=== PATIENT | female | born 1935 | race Caucasian/White ===

== ENCOUNTER 2017-01-20 16:03 | Inpatient (IN) | payer MEDICARE, BC ==
[~2017-01-20] VITALS: Ht 152.4 cm; Wt 81.5 kg
--- NOTE | ~2017-01-20 | HP ---
PATIENT'S NAME: DEJON WILLAMS [facility] AGE: 82 Y [address] ROOM: [place] [address] LOCATION: GPCU ADMIT DATE: 01/20/2017 History & Physical DISCHARGE DATE: FAMILY PHYSICIAN: STEVE SAUER MD ATTENDING PHYSICIAN: STEVE SAUER DATE OF SERVICE: CHIEF COMPLAINT: Fever. HISTORY OF PRESENT ILLNESS: The patient is an elderly 82-year-old female, who I saw in the office just prior to admission. She presented there and had a feeling of a sore throat, fever of 102 and 101.2 in my office, her respiratory rate of 20-30 without use of accessory muscles with a pulse rate of 119. She was medically stable, so I had her come over to the hospital. She was evaluated there by Dr. Olmstead, ER physician, and found to have a dense right upper lobe pneumonia. I discussed the case with Dr. Olmstead and the patient was admitted, placed on IV Zithromax and IV Rocephin. We will start breathing treatments, give O2 supplement as needed, and because of her heart history with AFib with chronic anticoagulation, we will obtain cardiac consultation while she is here. Because of the type of infiltrate and size of infiltrate, we will obtain Pulmonary consultation in the morning. We will continue with the IV antibiotics because of her chronic renal failure. Watch her renal function closely. I do note that her creatinine on admission was 1.9, her potassium is low at 3.3. We will replace that orally for now. Recheck a renal panel in the morning. Because of her diabetes mellitus type 2, treat her with oral agents and diet. We will do Accu-Cheks 4 times a day and a sliding scale with short-acting insulin as needed. PAST HISTORY MEDICATIONS: Medications: 1. Norvasc 10 mg a day. 2. Crestor 10 mg a day. 3. Lopressor 25 mg twice a day. 4. Vitamin D 5000 units a day. 5. Moexipril 15 mg 1 daily. 6. Chlorthalidone 25 mg a day. 7. Coumadin 5 mg a day. 8. Tradjenta 5 mg a day. 9. Synthroid 0.1 mg a day. ALLERGIES TO MEDICATIONS: See nurse's notes. PATIENT'S NAME: DEJON WILLAMS [facility] AGE: 82 Y [address] ROOM: [place] [address] LOCATION: GPCU ADMIT DATE: 01/20/2017 History & Physical DISCHARGE DATE: FAMILY PHYSICIAN: STEVE SAUER MD ATTENDING PHYSICIAN: STEVE SAUER PREVIOUS OPERATIONS: See old records. SOCIAL HISTORY: Does not smoke. FAMILY HISTORY: Noncontributory. IMMUNIZATIONS: Up-to-date for age. REVIEW OF SYSTEMS: Positive for hypertension, essential; hyperlipidemia; vitamin D deficiency, on replacement; chronic renal failure stage 3; chronic anticoagulation; atrial fibrillation, rate controlled; hypothyroid replacement; current pneumonia; respiratory failure secondary to pneumonia noted. PHYSICAL EXAMINATION: VITAL SIGNS: Noted. GENERAL: She is alert, pleasant, elderly female, who is ill, but nontoxic. HEENT: Shows O2 per nasal cannula. Pupils react to light. No sign of conjunctivitis. TMs are normal. Throat is slightly red. No exudate. Airway patent. NECK: Thyroid not enlarged. No adenopathy. LUNGS: Decreased breath sounds, right chest. HEART: Irregular rhythm. Rate controlled. No murmur. BREAST: Not done. ABDOMEN: Benign without tenderness. EXTREMITIES: Trace edema. Pulses felt throughout. PELVIC AND RECTAL: Not done. NEUROLOGIC: Cranial nerves intact. No lateralizing signs. LABORATORY DATA: Lab noted, chest x-ray reviewed. ASSESSMENT: 1. Community-acquired pneumonitis, manifesting as fever, sore throat, hypoxemia, and tachycardia. 2. Hypertension, essential. 3. Diabetes mellitus type 2, treated with oral agents. 4. Hypothyroid replacement. 5. Chronic anticoagulation. 6. Atrial fibrillation, rate control. PATIENT'S NAME: DEJON WILLAMS [facility] AGE: 82 Y [address] ROOM: [place] [id number] LOCATION: GPCU ADMIT DATE: 01/20/2017 History & Physical DISCHARGE DATE: FAMILY PHYSICIAN: STEVE SAUER MD ATTENDING PHYSICIAN: STEVE SAUER PLAN: As above. STEVE SAUER MD MARINE PIPEFITTER/modl /[id number] D: [id number] T: [id number] HISTORY & PHYSICAL
--- NOTE | ~2017-01-20 | CON ---
PATIENT'S NAME: LETY WILLAMS [facility] AGE: 82 Y [address] ROOM: [place] [address] LOCATION: GPCU ADMIT DATE: 01/21/2017 Consultation DISCHARGE DATE: FAMILY PHYSICIAN: STEVE ALCALA MD ATTENDING PHYSICIAN: STEVE ALCALA DATE OF CONSULTATION: 01/21/2017 REFERRING PHYSICIAN: Abbey Lincoln MD CARDIOLOGY CONSULTATION Patient of Dr. Alcala. Dear Dr. Alcala: Thank you for asking me to see Lety who is an 82-year-old female patient who was hospitalized yesterday with right upper lobe pneumonia. She has been ill for the past 7 days prior to which she was doing reasonably well. 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 She has not had any trouble with chest pain, but had fever and sore throat. She denies any significant shortness of breath. She does notice some trouble with breathing if she goes up a flight of stairs, making her functional class 3. There is no paroxysmal nocturnal dyspnea or orthopnea. She denies lightheadedness, dizziness, syncope, presyncope, palpitations, or ankle swelling. She has history of chronic atrial fibrillation on anticoagulation with Coumadin. She has had three cardioversions, but eventually went into chronic atrial fibrillation for which she is on current rate control strategy. The patient has history of hypertension, type 2 diabetes, and elevated cholesterol. She quit smoking 48 years ago. There is no family history of premature coronary artery disease. There is no prior history of [place] or angina or nitroglycerin use. There is no history of rheumatic fever. She does have a heart murmur. She denies congestive heart failure. She has chronic atrial fibrillation. MEDICATIONS: 1. Amlodipine 10 mg a day. 2. Rosuvastatin 10 mg a day. 3. Metoprolol 25 mg b.i.d. 4. Vitamin D3, 5000 units a day. 5. Moexipril 15 mg a day. 6. Chlorthalidone 25 mg a day. PATIENT'S NAME: LETY WILLAMS [facility] AGE: 82 Y [address] ROOM: [place] [address] LOCATION: GPCU ADMIT DATE: 01/21/2017 Consultation DISCHARGE DATE: FAMILY PHYSICIAN: STEVE ALCALA MD ATTENDING PHYSICIAN: STEVE ALCALA 7. Warfarin. 8. Tradjenta 5 mg daily. 9. Hydrochlorothiazide 25 mg a day. 10. Levothyroxine 100 mcg once a day. ALLERGIES: NO KNOWN DRUG ALLERGIES. PAST MEDICAL HISTORY: 1. Bilateral cataract surgery. 2. Tonsillectomy and adenoidectomy. 3. Hypothyroidism. SOCIAL HISTORY: The patient denies abusing alcohol. Her appetite and weight are stable. Sleep is fair. FAMILY HISTORY: No premature coronary artery disease. REVIEW OF SYSTEMS: A 12-point review of systems revealed no new additional information. PHYSICAL EXAMINATION: VITAL SIGNS: Her blood pressure is 130/55, heart rate is 104, respirations 20, and afebrile. HEENT: Normal. NECK: Supple. No JVD, thyromegaly, lymphadenopathy, or carotid bruit. HEART: PMI is not well located. First and second heart sounds are irregular. There are no added sounds. She does have a grade 2/6 to 3/6 systolic murmur best heard at the left sternal edge. Her heart rate is irregularly irregular. ABDOMEN: Soft. EXTREMITIES: Reveal no edema. CENTRAL NERVOUS SYSTEM: Overall appears to be intact. IMAGING STUDIES: Her EKG is unremarkable. One troponin is negative. Her proBNP is significantly elevated at 5000 units. A D-dimer is also elevated. Her prothrombin time is 1.99 making it almost therapeutic. ASSESSMENT: 1. Chronic atrial fibrillation on rate control strategy on oral anticoagulation with warfarin for CHADS2-VASc score of 4. 2. Possible underlying diastolic congestive heart failure. PATIENT'S NAME: LETY WILLAMS [facility] AGE: 82 Y [address] ROOM: [address] [address] LOCATION: GPCU ADMIT DATE: 01/21/2017 Consultation DISCHARGE DATE: FAMILY PHYSICIAN: STEVE ALCALA MD ATTENDING PHYSICIAN: STEVE ALCALA RECOMMENDATIONS: 1. We will get hold of her old cardiac catheterization and echocardiogram report. 2. We will obtain repeat CT chest PE protocol because of the underlying creatinine of 1.4. We will be very cautious about hydrating her and putting her on . 3. We will get few more laboratory tests done with troponins and EKG. If she has not had a recent echocardiogram, we will repeat that as well. Again, I appreciate this opportunity to participate in the care of Ms. Willams. MD SHAUNA COTTON/shannon /[id number] d: 01/21/17 2255 t: 01/27/17 1349, CONSULTATION REPORT
--- NOTE | ~2017-01-20 | ER ---
PATIENT'S NAME: DEJON WILLAMS [facility] AGE: 82 Y [address] ROOM: [place] [address] LOCATION: GPCU ADMIT DATE: 01/20/2017 ER/Outpatient Report DISCHARGE DATE: FAMILY PHYSICIAN: STEVE ALCALA MD ATTENDING PHYSICIAN: STEVE ALCALA TIME OF ARRIVAL: 16:02. TIME OF EVALUATION: 16:04. CHIEF COMPLAINT: Not feeling well. HISTORY OF PRESENT ILLNESS: The patient is an 82-year-old female, who presented to the Emergency Department today with a chief complaint of not feeling well. The patient reports that she initially went to Dr. Collado's office for evaluation of her kidneys, was unable to be seen there, and was sent to Dr. Alcala' office, who reported that she needed to come in to the Emergency Department for further evaluation. The patient has had subjective fevers at home as well as chills. No troubles urinating. She has also had a dry cough. She reports diarrhea x6 as well as fatigue. She reports symptoms started about 4 to 5 days, and has continued. She has also had nasal congestion and nasal drainage. She reports no pain, 0/10 in severity. PAST MEDICAL HISTORY: 1. Chronic kidney disease, stage 3. 2. Hypoxemia at night. 3. Nra-yzedxzx-xstnmktbe diabetes mellitus. 4. Hypothyroid. 5. Hypertension. 6. Atrial fibrillation. 7. Dyslipidemia. PAST SURGICAL HISTORY: ORIF of the wrist and ankle. SOCIAL HISTORY: The patient smoked less than a pack per day for five years and quit in 1968. She drinks alcohol occasionally. She denies any illicit drug use. ALLERGIES: NO KNOWN DRUG ALLERGIES. PATIENT'S NAME: DEJON WILLAMS [facility] AGE: 82 Y [address] ROOM: [place] [address] LOCATION: GPCU ADMIT DATE: 01/20/2017 ER/Outpatient Report DISCHARGE DATE: FAMILY PHYSICIAN: STEVE ALCALA MD ATTENDING PHYSICIAN: STEVE ALCALA MEDICATIONS: Please see list. REVIEW OF SYSTEMS: All systems are reviewed by myself, and are negative with the exception of those discussed in HPI and past medical history. PHYSICAL EXAMINATION: VITAL SIGNS: Weight is 82.9 kg. Blood pressure was 171/76, pulse was 102, respiratory rate was 18, temperature was 102.0, and oxygen saturation was 98% on room air. GENERAL: The patient is an 82-year-old female, who appears younger than stated age, in mild acute distress. Well developed. HEENT: Normocephalic and atraumatic. Pupils are equal, round, and reactive to light. Nares with clear discharge bilaterally. TMs are clear. Oropharynx is clear. NECK: Supple. There is no nuchal rigidity. CARDIOVASCULAR: Tachycardic. No murmurs, rubs, or gallops. LUNGS: Diminished diffusely with some crackles at the bases. ABDOMEN: Soft, nontender, and nondistended. No rebound, rigidity, or guarding. MUSCULOSKELETAL: The patient moves all 4 extremities. SKIN: Warm and dry. No rashes or lesions are noted. LABORATORY DATA AND DIAGNOSTIC IMAGING: Labs and x-rays are obtained. CBC: White blood cell count was 13.1 and ANC was 10.6, otherwise unremarkable. Lactate is normal. Influenza is negative. One-view chest x-ray does show a wedge-shaped opacification in the right lung. PTT is 31, PT is 18.5, and INR is 1.75. D-dimer is 2.12. ProBNP is 5095. CMP is unremarkable except for potassium of 3.3, BUN of 45, creatinine of 1.9, AST of 138, and ALT of 109. CK is normal. CK-MB is normal. Troponin is normal. Urinalysis shows 25 leukocyte esterase, 30 protein, and procalcitonin of 0.83 with moderate bacteria in the urine. IMPRESSION: 1. Community-acquired pneumonia. 2. Sepsis due to community-acquired pneumonia. 3. Acute respiratory failure, room air hypoxia. 4. Subtherapeutic INR. 5. Elevated D-dimer. 6. Elevated BNP. 7. Elevated liver enzymes. 8. Chronic kidney disease. 9. Critical care time of 31 minutes. PATIENT'S NAME: DEJON WILLAMS [facility] AGE: 82 Y [address] ROOM: [address] [place] [address] LOCATION: GPCU ADMIT DATE: 01/20/2017 ER/Outpatient Report DISCHARGE DATE: FAMILY PHYSICIAN: STEVE ALCALA MD ATTENDING PHYSICIAN: STEVE ALCALA 10. Initial visit. EMERGENCY DEPARTMENT COURSE: The patient was brought back to the Examination Room. She was seen and evaluated by myself. IV is established. Laboratory analysis and imaging are obtained as described above. The patient was given 1 g of Tylenol. She was started on a liter of normal saline. The results of the testing are obtained. The patient does have evidence of a wedge-shaped opacity noted on her chest x- ray. I have discussed this with the radiologist. He does report that findings are most compatible with a right upper lobe consolidating pneumonia with some cardiomegaly, without evidence of CHF noted. It is low likelihood in that location for it to be a pulmonary embolism. The patient's kidney function is elevated. A PE study is not ordered due to this as the patient is already on anticoagulation for atrial fibrillation. However, she is subtherapeutic at this time. Thus, we will initiate a heparin drip. The patient is also febrile, likely is pneumonia over pulmonary embolism. I have discussed the results with the patient. She is initiated on Rocephin 2 g IV as well as azithromycin 500 mg IV. The patient's questions are answered. I have contacted Dr. Alcala with the patient's primary care doctor. He does agree to accept the patient for further evaluation, treatment, and management. Please see his dictation. The patient did require cumulative critical care time of 31 minutes. This did include talking with the patient, talking with consultants, ordering tests, reviewing tests, reviewing old records, as well as close monitoring the patient with pneumonia, low oxygen saturations, and sepsis. DISPOSITION: The patient was admitted under the care of Dr. Alcala in stable condition. DO DONALDO ALONZO/modl /[id number] d: 01/21/17 0720 t: 01/23/17 1801, OUTPATIENT REPORT
--- NOTE | ~2017-01-20 | CON ---
PATIENT'S NAME: DEJON WILLAMS [facility] AGE: 82 Y [address] ROOM: [place] [id number] LOCATION: GPCU ADMIT DATE: 01/21/2017 Consultation DISCHARGE DATE: 01/26/2017 FAMILY PHYSICIAN: Kin Alcala MD ATTENDING PHYSICIAN: Kin Alcala DATE OF CONSULTATION: 01/20/2017 REFERRING PHYSICIAN: Abbey Lincoln MD HISTORY OF PRESENTING ILLNESS: This is an 82-year-old female who was admitted from Dr. Alcala' office to the Progressive Care Unit. The patient apparently presented to the office with sore throat, temperature 101-102, subsequently, the patient was admitted this time to the emergency department and was admitted to the hospital. The patient had persistent infiltrate on chest x-ray and Pulmonary consult was obtained. The patient currently is short of breath. She is on 3-4 L of oxygen and she is not on home oxygen. She denies any chest pain, pleurisy, hemoptysis, nausea, vomiting, abdominal pain, she did complain of cough with expectoration. Currently the patient feels a little bit better, but she continues to complain of shortness of breath at rest and with exertion. She denied any recent sick contact, she denied any immunocompromising medications, she denied any recent trauma to her chest. PAST MEDICAL HISTORY: 1. Chronic kidney disease, stage 3. 2. Nocturnal hypoxemia. 3. Ztc-oinvwdt-tyqjkwxni diabetes mellitus. 4. Hypothyroidism. 5. Atrial fibrillation. 6. Dyslipidemia. PAST SURGICAL HISTORY: ORIF of the wrist and ankle. SOCIAL HISTORY: The patient smoked less than a pack per day for 5 years, quit in 1968. She drinks alcohol occasionally. She denies any illicit drug use. ALLERGIES: NO KNOWN DRUG ALLERGIES. MEDICATIONS: Please refer to the MAR. PATIENT'S NAME: DEJON WILLAMS [facility] AGE: 82 Y [address] ROOM: [address] [address] LOCATION: GPCU ADMIT DATE: 01/21/2017 Consultation DISCHARGE DATE: 01/26/2017 FAMILY PHYSICIAN: Kin Alcala MD ATTENDING PHYSICIAN: Kin Alcala REVIEW OF SYSTEMS: A 10-point review of systems was done and otherwise negative other than mentioned in the history of presenting illness. PHYSICAL EXAMINATION: GENERAL: The patient is sitting in bed and does not appear in acute respiratory distress. VITAL SIGNS: Her weight is 82.9, blood pressure is 171/76, pulse is 102, respiratory rate was 20, temperature was 99, and oxygen saturation was 96% on 6 L. HEENT: Eyes are nonicteric. Pupils are equal, reactive to light, and accommodation. Normocephalic, atraumatic. Wet mucous membranes. Mallampati score is 2. NECK: Supple. No lymphadenopathy. No jugular venous distention. LUNGS: Decreased air entry on the right, there are crackles on the right, the left appears to be normal. HEART: S1, S2. No murmurs, rubs, or gallops. ABDOMEN: Soft, nontender, no palpable organs. LOWER EXTREMITIES: No edema, clubbing, or cyanosis. LABORATORY DATA: Laboratory data at the time of evaluation includes white cell count of 13.1, hemoglobin 12.2, hematocrit 36.2, and platelets 325. Her glucose was within normal limits. Her sodium was 136, potassium was 3.3, chloride was 99, CO2 was 25, anion gap was 15.3, BUN was 45, creatinine was 1.9, total protein was 7.1, albumin was 2.8, AST was 138, and ALT was 109. Blood cultures are pending. Chest x-ray reveals right-sided infiltrate, which looks like a wedge-shape. IMPRESSION: 1. Community-acquired pneumonia. 2. Hypoxic respiratory failure secondary to community-acquired pneumonia. PLAN: 1. At the current point, I agree with the current antibiotic choice of Zithromax and ceftriaxone as appropriate for this patient. 2. Aggressive pulmonary toilet is recommended. 3. I would recommend to obtain urine antigens for streptococcus and legionella. 4. Mycoplasma IgM. 5. I would also obtain sputum and blood cultures. 6. Early ambulation. 7. Wean off FiO2. PATIENT'S NAME: DEJON WILLAMS [facility] AGE: 82 Y [address] ROOM: [id number] [place], [place] [address] LOCATION: GPCU ADMIT DATE: 01/21/2017 Consultation DISCHARGE DATE: 01/26/2017 FAMILY PHYSICIAN: Kin Alcala MD ATTENDING PHYSICIAN: Alcala,Kin D 8. The patient will take time to recover. If she has persistent infiltrate in 3-4 weeks, further evaluation will be done. Thank you for allowing me to participate in the care of this patient. MD SHERLEY HINTON/shannon /[id number] d: 02/06/17 2359 t: 02/25/17 1007, CONSULTATION REPORT
--- NOTE | ~2017-01-20 | HP ---
PATIENT'S NAME: DEJON WILLAMS [facility] AGE: 82 Y [address] ROOM: [place] [address] LOCATION: GPCU ADMIT DATE: 01/20/2017 History & Physical DISCHARGE DATE: FAMILY PHYSICIAN: STEVE SAUER MD ATTENDING PHYSICIAN: STEVE SAUER DATE OF SERVICE: CHIEF COMPLAINT: Fever. HISTORY OF PRESENT ILLNESS: The patient is an elderly 82-year-old female, who I saw in the office just prior to admission. She presented there and had a feeling of a sore throat, fever of 102 and 101.2 in my office, her respiratory rate of 20-30 without use of accessory muscles with a pulse rate of 119. She was medically stable, so I had her come over to the hospital. She was evaluated there by Dr. Olmstead, ER physician, and found to have a dense right upper lobe pneumonia. I discussed the case with Dr. Olmstead and the patient was admitted, placed on IV Zithromax and IV Rocephin. We will start breathing treatments, give O2 supplement as needed, and because of her heart history with AFib with chronic anticoagulation, we will obtain cardiac consultation while she is here. Because of the type of infiltrate and size of infiltrate, we will obtain Pulmonary consultation in the morning. We will continue with the IV antibiotics because of her chronic renal failure. Watch her renal function closely. I do note that her creatinine on admission was 1.9, her potassium is low at 3.3. We will replace that orally for now. Recheck a renal panel in the morning. Because of her diabetes mellitus type 2, treat her with oral agents and diet. We will do Accu-Cheks 4 times a day and a sliding scale with short-acting insulin as needed. PAST HISTORY MEDICATIONS: Medications: 1. Norvasc 10 mg a day. 2. Crestor 10 mg a day. 3. Lopressor 25 mg twice a day. 4. Vitamin D 5000 units a day. 5. Moexipril 15 mg 1 daily. 6. Chlorthalidone 25 mg a day. 7. Coumadin 5 mg a day. 8. Tradjenta 5 mg a day. 9. Synthroid 0.1 mg a day. ALLERGIES TO MEDICATIONS: See nurse's notes. PATIENT'S NAME: DEJON WILLAMS [facility] AGE: 82 Y [address] ROOM: [place] [address] LOCATION: GPCU ADMIT DATE: 01/20/2017 History & Physical DISCHARGE DATE: FAMILY PHYSICIAN: STEVE SAUER MD ATTENDING PHYSICIAN: STEVE SAUER PREVIOUS OPERATIONS: See old records. SOCIAL HISTORY: Does not smoke. FAMILY HISTORY: Noncontributory. IMMUNIZATIONS: Up-to-date for age. REVIEW OF SYSTEMS: Positive for hypertension, essential; hyperlipidemia; vitamin D deficiency, on replacement; chronic renal failure stage 3; chronic anticoagulation; atrial fibrillation, rate controlled; hypothyroid replacement; current pneumonia; respiratory failure secondary to pneumonia noted. PHYSICAL EXAMINATION: VITAL SIGNS: Noted. GENERAL: She is alert, pleasant, elderly female, who is ill, but nontoxic. HEENT: Shows O2 per nasal cannula. Pupils react to light. No sign of conjunctivitis. TMs are normal. Throat is slightly red. No exudate. Airway patent. NECK: Thyroid not enlarged. No adenopathy. LUNGS: Decreased breath sounds, right chest. HEART: Irregular rhythm. Rate controlled. No murmur. BREAST: Not done. ABDOMEN: Benign without tenderness. EXTREMITIES: Trace edema. Pulses felt throughout. PELVIC AND RECTAL: Not done. NEUROLOGIC: Cranial nerves intact. No lateralizing signs. LABORATORY DATA: Lab noted, chest x-ray reviewed. ASSESSMENT: 1. Community-acquired pneumonitis, manifesting as fever, sore throat, hypoxemia, and tachycardia. 2. Hypertension, essential. 3. Diabetes mellitus type 2, treated with oral agents. 4. Hypothyroid replacement. 5. Chronic anticoagulation. 6. Atrial fibrillation, rate control. PATIENT'S NAME: DEJON WILLAMS [facility] AGE: 82 Y [address] ROOM: [place] [id number] LOCATION: GPCU ADMIT DATE: 01/20/2017 History & Physical DISCHARGE DATE: FAMILY PHYSICIAN: STEVE SAUER MD ATTENDING PHYSICIAN: STEVE SAUER PLAN: As above. STEVE SAUER MD SALES COORDINATOR/modl /[id number] D: T: [id number] HISTORY & PHYSICAL
--- NOTE | ~2017-01-20 | HP ---
PATIENT'S NAME: DEJON WILLAMS [facility] AGE: 82 Y [address] ROOM: [place] [address] LOCATION: GPCU ADMIT DATE: 01/21/2017 History & Physical DISCHARGE DATE: FAMILY PHYSICIAN: STEVE SAUER MD ATTENDING PHYSICIAN: STEVE SAUER DATE OF SERVICE: SUBJECTIVE: The patient says she is feeling better. The patient is seen with her daughter today. OBJECTIVE: The patient's pulse rate still is at 113/atrial fibrillation. Temperature is now normal for about 18 hours on IV antibiotics of Rocephin and Zithromax. See consultative notes from Cardiology and Pulmonology. MEDICATIONS: Reviewed. ALLERGIES: NOTED. REVIEW OF SYSTEMS: Positive for diabetes mellitus, type 2; chronic renal failure; current community-acquired pneumonitis, right lung; atrial fibrillation with rapid ventricular response; known carotid disease; and acute kidney injury on chronic kidney disease. PHYSICAL EXAMINATION: VITAL SIGNS: Pulse is mentioned. Respirations 18, O2 saturation with O2 normal. Temperature is 98.0. HEENT: Nose is clear. TMs not visualized. Posterior pharynx is clear. NECK: Unremarkable. LUNGS: Decreased breath sounds, right chest. HEART: No murmur. Irregular rhythm. ABDOMEN: Benign. EXTREMITIES: Trace edema. ASSESSMENT: 1. Community-acquired pneumonitis, right lung. 2. Atrial fibrillation with rapid ventricular response. 3. Hypertension, essential. 4. Diabetes mellitus, type 2. 5. Chronic renal failure, stage 3. PATIENT'S NAME: DEJON WILLAMS [facility] AGE: 82 Y [address] ROOM: [place] [address] LOCATION: GPCU ADMIT DATE: 01/21/2017 History & Physical DISCHARGE DATE: FAMILY PHYSICIAN: STEVE SAUER MD ATTENDING PHYSICIAN: STEVE SAUER PLAN: Long discussion with the patient and her daughter today. The patient wants to go home but I really think she needs another 24 hours of IV antibiotics to make sure her temperature stays down, her pulse rate is too fast to go home, and I discussed with the patient and her daughter that until these two areas defervesce and better, I would first hold off and switch her to oral antibiotics tomorrow and let the tuber machine operator helper adjust her medicine control her rapid ventricular response, atrial fibrillation then talk about going home in the next 24 to 48 hours. MD WALTER GAMA/shannon /[id number] D: [id number] T: [id number] HISTORY & PHYSICAL
--- NOTE | ~2017-01-20 | DS ---
PATIENT'S NAME: DEJON WILLAMS [facility] AGE: 82 Y [address] ROOM: [address] [place] [address] LOCATION: GPCU ADMIT DATE: 01/21/2017 Discharge Summary DISCHARGE DATE: 01/26/2017 FAMILY PHYSICIAN: Kin Alcala MD ATTENDING PHYSICIAN: Kin Alcala HOSPITAL COURSE: This elderly white female, 82-year-old, was admitted to the hospital with hypoxemia, respiratory failure, and was found to have in the emergency room a right lung pneumonia. Please see chest x-rays showing a right upper lobe infiltrate. Because of her rapid ventricular response and atrial fibrillation, Cardiology consultation was obtained from Dr. Lincoln and Dr. Cloud from [facility]. She was seen daily also by the charge operator to my request because of the size and type of her community-acquired pneumonitis. Please see charge operator note and the chart. She was status post heart catheterization 01/12/2014. She was found to have coronary artery disease. See report from Dr. Pizano. Here, there was no evidence of acute GA. Her CAT scan was obtained, showed no sign of pulmonary embolus. She was started on breathing treatments, her heart medicines were adjusted because of her atrial fibrillation. She was started on IV Rocephin and IV Zithromax. After 2 days of IV antibiotics, her fever defervesced and after the third day of IV antibiotics, she was switched to oral antibiotics. On the day of dismissal, 01/26/2017, she has improved. Cardiology suggested medicine for blood pressure and AFib with rapid ventricular response. I have asked them to medications on dismissal. She is dismissed to home, to see me back in the office in a week. If she has fever, shortness of breath, or chest pain, she is to see me back earlier and she and her daughter who is present for the exam understand. She is dismissed on the med list shown. KIN ALCALA MD MUSEUM REGISTRAR/modl /[id number] d: 01/26/17 08 t: 02/07/17 1207, DISCHARGE SUMMARY
--- NOTE | ~2017-01-20 | PUL ---
PATIENT'S NAME: DEJON WILLAMS [facility] AGE: 82 Y [address] ROOM: [address] [address] LOCATION: GPCU ADMIT DATE: 01/21/2017 Pulmonary DISCHARGE DATE: 01/26/2017 FAMILY PHYSICIAN: Kin Alcala MD ATTENDING PHYSICIAN: Kin Alcala NAME OF PROCEDURE: Nighttime Oximetry DATE OF PROCEDURE: January 25 to January 26, 2017 REASON FOR EXAM: Nocturnal hypoxemia RESULTS: The patient had a total recording time of 7 hours, 51 minutes, and 28 seconds. The total valid sampling time was 7 hours, 45 minutes, and 4 seconds. The highest pulse was 117 beats per minute, the lowest pulse was 55 beats per minute, and the mean pulse was 73 beats per minute. The highest SpO2 was 100%, the lowest SpO2 was 70%, with mean SpO2 was 87.8%. The patient spent 4 hours, 28 minutes, and 44 seconds with an SpO2 below 89, and 2 hours, 19 minutes, and 20 seconds with an SpO2 more than 90, and 5 hours, 18 minutes, and 48 seconds below 90%. There was 14.2 desaturation event index. PHYSICIAN INTERPRETATION: The patient meets Medicare criteria for nighttime oxygen category one. Thank you for allowing me to participate in care of this patient. MD SHERLEY HINTON/madi /[id number] dtt: 02/02/17 1052 Elodia George S. dtd: 01/27/17 1059
[2017-01-20 16:41] LABS: BASOPHIL % 0.2 %; EOSINOPHIL % 0.1 %; HEMATOCRIT 36.2 % (30.0-46.0); HEMOGLOBIN 12.2 g/dL (10.0-15.0); IMMATURE GRANULOCYTE # 0.1 K/uL (0.0-0.3); IMMATURE GRANULOCYTE % 0.5 %; LYMPHOCYTE # 0.8 K/uL (0.8-4.0); LYMPHOCYTE % 5.7 %; MCH 29.2 pg (27.0-34.0); MCHC 33.7 gm/dL (32.0-36.5); MCV 86.6 fl (83.0-98.0); MONOCYTE # 1.7 K/uL (0.0-1.0); MONOCYTE % 12.9 %; MPV 9.5 fl (9.4-12.4); NEUTROPHIL # (ANC) 10.6 K/uL (1.8-7.8); NEUTROPHIL % 80.6 %; NRBC % 0 /100WBC (0-0.00); PLATELET COUNT 325 K/uL (150-450); RBC 4.18 M/uL (3.00-5.00); WBC 13.1 K/uL (4.0-11.0)
[2017-01-20 16:49] LABS: INR - (THERAPEUTIC) 1.75 (0.92-1.07); PROTIME 18.5 SECONDS (9.8-11.4); PTT 31 SECONDS (25-32)
[2017-01-20 17:04] LABS: ALBUMIN 2.8 gm/dL (3.5-5.0); ALK PHOS 98 IU/L (33-138); ALT 109 IU/L (12-78); ANION GAP 15.3 (10.0-19.0); AST 138 IU/L (10-40); BLOOD UREA NITROGEN 45 mg/dL (6-24); CALCIUM 8.2 mg/dL (8.5-10.5); CHLORIDE 99 mMol/L (96-110); CO2 25 mMol/L (22-32); CPK 100 IU/L (21-215); CREATININE 1.9 mg/dL (0.5-1.1); ESTIMATED GFR (MDRD EQUATION) 25; POTASSIUM 3.3 mMol/L (3.7-5.1); SODIUM 136 mMol/L (135-145); TOTAL BILIRUBIN 0.6 mg/dL (0.0-1.5); TOTAL PROTEIN 7.1 g/dL (6.0-8.4)
[2017-01-20 17:28] LABS: BILIRUBIN URINE NEGATIVE (NEGATIVE); BLOOD URINE 10 /UL (NEGATIVE); COLOR URINE YELLOW (YELLOW); GLUCOSE URINE NEGATIVE (NEGATIVE); KETONE URINE NEGATIVE (NEGATIVE); LEUKOCYTES URINE 25 /UL (NEGATIVE); NITRITE URINE NEGATIVE (NEGATIVE); PROTEIN URINE 30 mg/dL (NEGATIVE); TURBIDITY URINE 1+ (CLEAR); UROBILINOGEN URINE NORMAL (NORMAL)
[2017-01-20 17:36] LABS: BACTERIA URINE MODERATE (NEGATIVE); RBC URINE 0-2 #/HPF (NEGATIVE)
[2017-01-20 17:37] LABS: MUCUS URINE 2+ (NEGATIVE)
[2017-01-20] MEDS ORDERED: NORVASC10 MG PO ×2 (19:31→19:33)
[2017-01-20] MEDS ORDERED: CRESTOR10 MG PO (19:33)
[2017-01-20] MEDS ORDERED: VITAMIN D35000 UNI1 PO (19:34)
[2017-01-20] MEDS ORDERED: LOPRESSOR50 MG PO (19:34)
[2017-01-20] MEDS ORDERED: MOEXIPRIL HCL15 MG PO (19:35)
[2017-01-20] MEDS ORDERED: HYGROTON PO (19:37)
[2017-01-20] MEDS ORDERED: COUMADIN ** IA5 MG PO (19:38)
[2017-01-20] MEDS ORDERED: TRADJENTA5 MG PO (19:38)
[2017-01-20] MEDS ORDERED: HYDRODIURIL25 MG PO (19:38)
[2017-01-20] MEDS ORDERED: LEVO-T100 MCG PO (19:39)
--- NOTE | 2017-01-21 04:11 | NUR ---
Pt a/o. admitted for PNE/?pe. HR 110's. SBP good, no fever until last check- was 102.3. given 650 of apap, even though MD aware liver enzymes elevated. temp now 99.2. con't to have increased o2 demands. Fluids stopped. O2 at 5L this am and unable to titrate down. 2v chest xray ordered- waiting for results. Fluids stopped other than abx. Nebs qid prn ordered- RT RSS. Plan: con't ?pne pathway. Needs cardio consult.
[2017-01-21 06:27] LABS: INR - (THERAPEUTIC) 1.99 (0.92-1.07)
[2017-01-21 06:33] LABS: ALBUMIN 2.2 gm/dL (3.5-5.0); ANION GAP 12.1 (10.0-19.0); CALCIUM 8.4 mg/dL (8.5-10.5); CREATININE 1.4 mg/dL (0.5-1.1); PHOSPHORUS 2.7 mg/dL (2.5-4.9); POTASSIUM 3.1 mMol/L (3.7-5.1)
--- NOTE | 2017-01-21 15:22 | NUR ---
Significant Event: ALERT AND ORIENTED X3. HAS BEEN SLEEPING ON/OFF. TEMP MAX 102.2, TYLENOL 650 MG PO GIVEN. BLOOD CULTURES X3 ORDERED. O2 @ 4-5L TODAY. LASIX 20 MG IVP X1 GIVEN. LUNG SOUNDS VARY, WHEEZY AT TIMES. NON-PRODUCTIVE COUGH. IV TO LEFT AC SL'D. DR. GALLARDO CONSULTED AND SAW. DR. ABBOTT CONSULTED, HAS NOT SEEN YET. ENCOURAGE IS AND FV. Follow up: CONTINUE TO MONITOR.
--- NOTE | 2017-01-22 05:01 | NUR ---
Significant Event: A/O, HR 70-100s, 5L O2 sats low 90%s, afebrile, increased to 6L at 0430, sba to bathroom, IV abt, NS at 80ml/hr for CT today Follow up: continue to monitor respiratory status
[2017-01-22 06:12] LABS: ALBUMIN 2.1 gm/dL (3.5-5.0); ANION GAP 11.9 (10.0-19.0); CREATININE 1.2 mg/dL (0.5-1.1); PHOSPHORUS 2.1 mg/dL (2.5-4.9); POTASSIUM 2.9 mMol/L (3.7-5.1)
--- NOTE | 2017-01-22 11:49 | NUR ---
Introduced self and purpose of heart healthy education. Calendar given, information reviewed, verbalized.
--- NOTE | 2017-01-22 15:31 | NUR ---
Significant Event: Patient A/O x 3. Up with SBA. VSS on 3L. Titrated from 6L this shift. Nonproductive cough. Patient reports feeling bloated and constipated. Has no had BM since 01/19. Gave prune juice, as patient states that she normally takes that at home. LAC PIV SL. CT of chest per PE protocol done. No PE, but shows RUL denisty. Denies pain throughout the day. Shortness of breath with activity. Gave a total of 140 mEq of KCL today for potassium of 2.9. ACHS Accu checks. Follow up: Continue as per plan of care. Monitor oxygen needs. Continue IV antibiotics.
--- NOTE | 2017-01-22 16:00 | NUR ---
Introduced self and role of care management to patient. Patient lives alone at [facility]. She says her lives at [facility]. She does not use a walker, cane or O2 at home. 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 She says she visits her everyday from 3-7 p.m. They have 4 chidren and one lives in [place] and the others withing 1 1/2 hours of [place]. She plans home when ready for discharge. She says told her she may need to have O2 for awhile. Will follow.
--- NOTE | 2017-01-23 04:44 | NUR ---
Significant event: A/O x 3. Up with minimal assist to the bathroom. Stool x 5 last night. continues on 3L nc with sats in the mid to low 90's. No c/o pain throughout shift. IV to Left AC that is SL'D.
[2017-01-23 05:29] LABS: ANION GAP 12.2 (10.0-19.0); CREATININE 1.2 mg/dL (0.5-1.1)
[2017-01-23 05:30] LABS: POTASSIUM 6.2 mMol/L (3.7-5.1)
--- NOTE | 2017-01-23 16:17 | NUR ---
Significant Event: A/OX3, VSS ON 1L PER NC. NO COMPLAINTS OF PAIN. PT. GETS UP AD MICHEL IN ROOM, HAS BEEN UP TO CHAIR MOST OF THE DAY, DID WALK IN HALLS TODAY WITH PHYSICAL THERAPY. SLVI TO L)AC, CONTINUES ON IV ABX'S. SHOWERED TODAY. SMALL BM X3 TODAY, VOIDS FINE. MED CHANGES TODAY. Follow up: CONTINUE WITH POC.
[2017-01-23 16:35] LABS: CALCIUM 9.1 mg/dL (8.5-10.5); CREATININE 1.2 mg/dL (0.5-1.1)
--- NOTE | 2017-01-24 05:21 | NUR ---
Significant event: A/O x 3. Up with minimal assist. New IV to left wrist. On 2L o2 at noc with sats in the low 90's. during the 3rd assessment she had audible wheezing after getting up to the bathroom.
--- NOTE | 2017-01-24 17:14 | NUR ---
Significant Event: Patient A/O x 3. Up in the room independently. VSS. Attempting to wean to room air. Lungs with crackles to bilateral bases. Productive cough today with blood-tinged sputum per patient report. Reports feeling bloated this morning. Drank prune juice and was able to have a couple of BM's, and now states that the feeling is gone. Denies pain or discomfort throughout the day. ACHS accu checks. Switch to PO antibiotics tomorrow. Follow up: Continue as per plan of care. Monitor O2 saturations. Possible discharge tomorrow.
[2017-01-25 04:02] LABS: ANION GAP 12.1 (10.0-19.0); CALCIUM 9.3 mg/dL (8.5-10.5); POTASSIUM 4.1 mMol/L (3.7-5.1)
--- NOTE | 2017-01-25 04:11 | NUR ---
Patient A/Ox3. VSS on RA during day 2L at HS. Independent in room but does call at HS to get out of bed. Lungs clear/slightly course in bases at times and she does have a cough. Abdomen soft non-tender, 1 SM BM this shift. IV saline locked to Rt hand. Wants to go home today. Slept well.
--- NOTE | 2017-01-25 11:20 | NUR ---
A-SCREENED D/T LOS HT: 60 IN. WT: 84.0 KG. IBW: 45 KG. BMI: 36.0 LABS: NA 143, K+ 4.1, GLU 120, BUN 15, SCHOOL TRAFFIC GUARD 1.0, ALB 2.1 MEDS: CEFTIN, ZITHROMAX, ALOGLIPTIN, VIT D, NOVOLOG (MILD SS), PHENERGAN DIET RX: CONSISTENT CARB. PO INTAKE SINCE ADMIT HAS BEEN 100% EST NUTR NEEDS: 9714-4677 KCALS (15-20 KCALS/KG) 68-90 GM PROTEIN (1.5-2.0 GM/KG IBW) 1 ML FLUID/KCAL D-NOT AT NUTRITION RISK; NO NUTRITION DX IDENTIFIED I-CONTINUE W/CURRENT DIET RX M/E-WILL ASSIST NEEDED
--- NOTE | 2017-01-25 15:23 | NUR ---
Significant Event: Patient A/O x 3. Up in the room independently. VSS on RA throughout the day. Continues to have crackles to bilateral bases. Switched to PO antibiotics today. Denies feeling bloated like previous days. No BM this shift. Denies pain or shoftness of breath. ACHS accu check. Follow up: Continue as per plan of care. Awaiting for Dr. Alcala to evaluate the patient and possibly dismiss.
--- NOTE | 2017-01-26 04:09 | NUR ---
Patient A/Ox3. VSS on RA. Indenpendent in room. Lungs slightly course to clear/diminished. Overnight trend OX. Bowel sounds present. IV to hand saline locked. No complaints. Home today.
[2017-01-26] MEDS ORDERED: ZITHROMAX250 MG PO (09:43)
[2017-01-26] MEDS ORDERED: CEFTIN500 MG PO (09:44)
[2017-01-26] MEDS ORDERED: ALDACTONE25 MG PO (09:48)
--- NOTE | 2017-01-26 11:30 | NUR ---
Diabetes consult: Nursing called to report the patient is being discharged to home and knows very little about her diagnosis of diabetes. The patient has a A1C of 7.3% and is taking tradjenta. The patient was give a contour next ez glucometer and instructed on its use. She is a medicare patient and interested in attending diabetes class with her daughter. Referral was sent to Dr. Alcala for patient to attend class. Basic diabetes information provided to patient. Patient will receive additional info about diabetes class in the mail.
--- NOTE | 2017-01-26 12:03 | NUR ---
Discharge Summary: Patient A/O x 3 and vital signs stable: HR 107 in Afib, BP 123/63, O2 saturation 95% on RA, RR 20, afebrile, and denies pain or shortness of breath. Set up home oxygen at night for patient. Discharge instructions included: new medications/medication changes, sign/symptoms to be alert for, diabetic education, pneumonia education, using oxygen at home, and following up with Dr. Clifton and Dr. Alcala. Patient verbalizes understanding of all teaching and states she has no further questions at this time. Monitor and peripheral IV discontinued. Patient left PCU at [address] [facility] entrance and then home to self care with daughter. No needs at time of discharge. Analilia RN 01/26/17
== END 2017-01-26 11:40 | disposition disaster alternative care site (69) | DRG 193 ==
LOC: GMED 16:03 → GPCU 18:48
PROVIDERS: Emergency Medicine; Internal Medicine Interventional Cardiology; ADMIT Family Medicine
DX: J18.9 Pneumonia, unspecified organism (principal); J96.01 Acute respiratory failure with hypoxia; I50.33 Acute on chronic diastolic (congestive) heart failure; E78.5 Hyperlipidemia, unspecified; E55.9 Vitamin D deficiency, unspecified; N18.3 Chronic kidney disease, stage 3 (moderate); Z23 Encounter for immunization; R79.89 Other specified abnormal findings of blood chemistry; I48.2 Chronic atrial fibrillation; E78.00 Pure hypercholesterolemia, unspecified; E87.5 Hyperkalemia; R01.1 Cardiac murmur, unspecified; I27.2 Other secondary pulmonary hypertension; I12.9 Hypertensive chronic kidney disease with stage 1 through stage 4 chronic kidney disease, or unspecified chronic kidney disease; E03.9 Hypothyroidism, unspecified; E11.22 Type 2 diabetes mellitus with diabetic chronic kidney disease; Z79.84 Long term (current) use of oral hypoglycemic drugs; Z79.01 Long term (current) use of anticoagulants; Z87.891 Personal history of nicotine dependence
CPT/HCPCS: A9270; G0009; J0456; J0696; J1644; J1940; J7030; J7040; J7050; Q9967

== ENCOUNTER → 2017-04-15 | Outpatient (CLI) | payer MEDICARE, BC ==
[~2017-04-15] MED LIST: ALDACTONE25 MG PO; CEFTIN500 MG PO; COUMADIN ** IA5 MG PO; CRESTOR10 MG PO; HYDRODIURIL25 MG PO; HYGROTON PO; LEVO-T100 MCG PO; LOPRESSOR50 MG PO; MOEXIPRIL HCL15 MG PO; NORVASC10 MG PO; TRADJENTA5 MG PO; VITAMIN D35000 UNI1 PO; ZITHROMAX250 MG PO
[2017-04-15 17:09] LABS: ALBUMIN 3.6 gm/dL (3.5-5.0); ANION GAP 13.4 (10.0-19.0); CALCIUM 9.5 mg/dL (8.5-10.5); CREATININE 1.8 mg/dL (0.5-1.1); POTASSIUM 4.4 mMol/L (3.7-5.1)
[2017-04-15 17:12] LABS: TOTAL BILIRUBIN 0.5 mg/dL (0.0-1.5); TOTAL PROTEIN 7.9 g/dL (6.0-8.4)
== END ==
LOC: LNHI 16:31
PROVIDERS: Internal Medicine Interventional Cardiology
DX: E78.5 Hyperlipidemia, unspecified (principal); I34.0 Nonrheumatic mitral (valve) insufficiency